=== PATIENT | female | born 2005 | race Caucasian/White ===

== ENCOUNTER 2025-11-17 18:43 | Emergency (ER) | payer OTHER ==
[~2025-11-17] VITALS: Ht 175.3 cm; Wt 120.1 kg
[2025-11-17 19:25] LABS: BASO # 0.1 10^3/uL (0.0-0.2); BASO % 1.2 % (0.0-1.0); EOS # 0.1 10^3/uL (0.0-0.5); EOS % 1.5 % (0.0-3.0); LYMPH # 1.9 10^3/uL (1.5-5.0); LYMPH % 21.6 % (24.0-44.0); MONO # 0.8 10^3/uL (0.0-0.8); MONO % 9.5 % (2.0-8.0); NEUTROPHILS # 5.7 10^3/uL (1.5-8.5); NEUTROPHILS % 65.9 % (36.0-66.0); PLATELET COUNT, AUTOMATED 436 10^3/uL (150-450)
[2025-11-17 19:48] LABS: CALCIUM LEVEL 8.9 MG/DL (8.5-10.1); CARBON DIOXIDE LEVEL 24 MMOL/L (20-31); CHLORIDE LEVEL 108 MMOL/L (98-107); CREATININE FOR GFR 0.62 MG/DL (0.55-1.30); GLOMERULAR FILTRATION RATE > 90.0 (>60); POTASSIUM SERUM 4.1 MMOL/L (3.5-5.1); SODIUM LEVEL 141 MMOL/L (136-145)
[2025-11-17 20:04] LABS: HCG, SERUM QUANTITATIVE 1096.6 MIU/ML (<4.2)
[2025-11-17 20:51] VITALS: BP 126/82; TEMP 99.4; O2SAT 100
== END 2025-11-17 21:26 | disposition home or self-care (01) ==
LOC: M ED 19:50
DX: O20.0 Threatened abortion (principal); Z91.018 Allergy to other foods

== ENCOUNTER → 2025-11-19 | Outpatient (CLI) | payer OTHER | LOC: M LAB 13:05 | PROVIDERS: ATTEND Nurse Practitioner Family | DX: Z34.90 Encounter for supervision of normal pregnancy, unspecified, unspecified trimester (principal); N93.9 Abnormal uterine and vaginal bleeding, unspecified ==